=== PATIENT | male | born 1980 | race Hispanic/Latino ===

== ENCOUNTER 2017-04-26 00:32 | Inpatient (IN) | payer OTHER, MEDICARE, MEDICAID ==
[~2017-04-26] VITALS: Ht 175.3 cm; Wt 123.6 kg
[2017-04-26] MEDS ORDERED: ASPIRIN 325 MG TABLET ONE ×2 (00:57→01:04)
[2017-04-26 01:33] LABS: BASOPHILS % (AUTO) 0.7 % (0.0-5.0); EOSINOPHILS % (AUTO) 2.1 % (0.0-8.0); HEMATOCRIT 29.2 % (42-54); LYMPHOCYTES % (AUTO) 22.1 % (21.0-51.0); MEAN CORPUSCULAR HEMOGLOBIN 26.6 pg (27.0-33.0); MEAN CORPUSCULAR HGB CONC 32.4 g/dL (32.0-36.0); MEAN CORPUSCULAR VOLUME 82.1 fL (79-99); MONOCYTES % (AUTO) 5.4 % (3.0-13.0); NEUTROPHILS % (AUTO) 69.7 % (40.0-77.0); PLATELET COUNT (AUTO) 332 K/uL (130-400); RED BLOOD CELL COUNT(AUTO) 3.56 MIL/uL (4.50-6.20); RED CELL DISTRIBUTION WIDTH 14.7 % (11.0-15.5); WHITE BLOOD COUNT (AUTO) 10.7 K/uL (4.8-10.8)
[2017-04-26 01:43] LABS: INR 0.98 (0.85-1.15); PROTHROMBIN TIME 10.3 SEC (9.6-11.6)
[2017-04-26 01:54] LABS: CREATININE 6.3 mg/dL (0.5-1.5); POTASSIUM 5.4 mmol/L (3.5-5.1)
[2017-04-26] MEDS ORDERED: AMPICILLIN SODIUM/SULBACTAM NA 1.5GM VIAL ONE (01:54)
[2017-04-26] MEDS ORDERED: SODIUM CHLORIDE 0.9% 1000ML 1,000 ML IV ONE ×2 (01:59→03:37)
[2017-04-26 02:09] LABS: ALBUMIN 2.9 g/dL (3.5-5.0); BILIRUBIN,TOTAL 0.2 mg/dL (0.2-1.0); CREATINE KINASE MB 11.2 ng/mL (0.5-3.6); TOTAL PROTEIN, SERUM 7.5 g/dL (6.0-8.3)
[2017-04-26] MEDS ORDERED: CALCIUM GLUCONATE 1 GM/10 ML VIAL IV ONE (03:11)
[2017-04-26] MEDS ORDERED: SODIUM POLYSTYRENE SULFONATE 15 GM/60 ML ML ONE (03:11)
[2017-04-26] MEDS ORDERED: DEXTROSE 50%-WATER 50 ML DISP.SYRIN IV ONE (03:11)
[2017-04-26] MEDS ORDERED: INSULIN HUMULIN R 100 UNIT/ML 3ML ONE (03:12)
[2017-04-26] MEDS ORDERED: ALBUTEROL SULFATE 0.083% 2.5 MG/3 ML INH IH ONE (03:16)
[2017-04-26] MEDS ORDERED: IOPAMIDOL-370 75 ML VIAL IV ONE (03:33)
[2017-04-26 04:13] LABS: APPEARANCE,URINE Clear (CLEAR); BILIRUBIN,URINE Negative (NEGATIVE); COLOR,URINE Yellow (YELLOW); GLUCOSE, URINE (UA) >=1000 mg/dL (NEGATIVE); KETONES,URINE Negative (NEGATIVE); LEUKOCYTE ESTERASE ,URINE Negative (NEGATIVE); NITRATE,URINE Negative (NEGATIVE); OCCULT BLOOD,URINE Small (NEGATIVE); PH,URINE 6.5 (5.0-8.0); PROTEIN,URINE >=1000 (NEGATIVE); UROBILINOGEN,URINE 0.2 mg/dL (0.2-1.0)
[2017-04-26] MEDS ORDERED: ENOXAPARIN SODIUM 100 MG/1 ML SQ ONE (04:17)
[2017-04-26] MEDS ORDERED: ENOXAPARIN SODIUM 30 MG/0.3 ML SQ ONE (04:17)
[2017-04-26] MEDS ORDERED: MORPHINE SULFATE 4 MG/1ML SYG ONE (04:18)
[2017-04-26 04:29] LABS: BACTERIA,URINE None Seen /HPF (None Seen); MUCUS,URINE Moderate LPF (None Seen); RBC,URINE 0-1 /HPF (0-1); SQUAMOUS EPITHELIAL CELL,UR None Seen /LPF (0-2); WBC,URINE None Seen /HPF (0-1)
[2017-04-26 07:18] LABS: CREATININE 6.2 mg/dL (0.5-1.5); POTASSIUM 5.1 mmol/L (3.5-5.1)
[2017-04-26] MEDS ORDERED: HYDROCODONE/ACETAMINOPHEN 10/325 MG TAB ONE (11:38)
[2017-04-26 12:42] VITALS: BP 163/90
[2017-04-26] MEDS ORDERED: ONDANSETRON HCL 4 MG/2 ML VIAL IVP PRN (13:00)
[2017-04-26] MEDS ORDERED: ACETAMINOPHEN EXTRA STRENGTH 500 MG TABLET PO PRN (13:00)
[2017-04-26] MEDS ORDERED: HEPARIN SODIUM 5000UNIT/ML 1ML VIAL IJ PRN ×2 (15:30)
[2017-04-26] MEDS ORDERED: ALBUMIN (HUMAN) 25% 100 ML IV PRN (15:30)
[2017-04-26] MEDS ORDERED: SODIUM CHLORIDE 0.9% 1000ML 1,000 ML IV PRN (15:30)
[2017-04-26] MEDS ORDERED: 0.9% SODIUM CHLORIDE 250 ML IV BAG IV PRN (15:30)
[2017-04-26] MEDS ORDERED: TRAZODONE HCL 50 MG TAB PO PRN (15:45)
[2017-04-26] MEDS: INSULIN HUMULIN R 100 UNIT/ML 3ML SQ SCH ×2 (16:30→21:48)
[2017-04-26 16:47] VITALS: BP 181/88
[2017-04-26] MEDS: ENOXAPARIN SODIUM 120 MG/0.8ML SQ SCH (17:32)
[2017-04-26] MEDS: METOCLOPRAMIDE 10 MG TABLET PO SCH ×2 (17:32→21:51)
[2017-04-26] MEDS: HYDRALAZINE HCL 20 MG/ML VIAL IV PRN (17:54)
[2017-04-26 18:00] VITALS: BP 156/89
[2017-04-26] MEDS: HYDROCODONE/ACETAMINOPHEN 5/325 MG TAB PO PRN ×2 (18:00→21:52)
[2017-04-26 19:35] VITALS: BP 181/98
[2017-04-26] MEDS ORDERED: EPOETIN ALFA 3,000 UNIT/ML ML SQ ONE ×2 (20:00→22:00)
[2017-04-26 21:29] LABS: % IRON SATURATION 13.9 % (30-44)
[2017-04-26] MEDS: FENOFIBRATE NANOCRYSTALLIZED 145 MG TAB PO SCH (21:51)
[2017-04-26] MEDS: FAMOTIDINE 20MG TAB 20 MG TAB PO SCH (21:51)
[2017-04-26] MEDS: CARVEDILOL 25 MG TABLET PO SCH (21:51)
[2017-04-26] MEDS: PREGABALIN 75 MG CAPSULE PO SCH (21:51)
[2017-04-26 23:25] VITALS: BP 148/93
[2017-04-27 03:35] VITALS: BP 153/91
[2017-04-27 06:13] LABS: MEAN CORPUSCULAR HGB CONC 34.2 g/dL (32.0-36.0); PLATELET COUNT (AUTO) 349 K/uL (130-400); RED BLOOD CELL COUNT(AUTO) 3.41 MIL/uL (4.50-6.20); RED CELL DISTRIBUTION WIDTH 14.6 % (11.0-15.5)
[2017-04-27] MEDS: METOCLOPRAMIDE 10 MG TABLET PO SCH ×4 (06:19→22:37)
[2017-04-27] MEDS: INSULIN HUMULIN R 100 UNIT/ML 3ML SQ SCH ×4 (06:22→22:30)
[2017-04-27 06:50] LABS: BASOPHILS % (MANUAL) 1 % (0-2); EOSINOPHILS % (MANUAL) 3 % (1-6); LYMPHOCYTES % (MANUAL) 21 % (22-44); MAN.DIFF COMMENT-IMPRESSION MANUAL DIFFERENTIAL; MONOCYTES % (MANUAL) 11 % (2-9); PLATELET MORPHOLOGY COMMENT ADEQUATE; SEGMENTED NEUTROPHILS % 64 % (40-70)
[2017-04-27 07:25] LABS: CREATININE 5.1 mg/dL (0.5-1.5); POTASSIUM 4.8 mmol/L (3.5-5.1)
[2017-04-27 07:58] VITALS: BP 176/89
[2017-04-27] MEDS: FOLIC ACID/VITAMIN B COMP W-C 1 MG CAPSULE PO SCH (09:04)
[2017-04-27] MEDS: LISINOPRIL 20 MG TABLET PO SCH (09:05)
[2017-04-27] MEDS: CITALOPRAM 20 MG TABLET PO SCH (09:05)
[2017-04-27] MEDS: CARVEDILOL 25 MG TABLET PO SCH ×2 (09:05→22:38)
[2017-04-27] MEDS: CLONIDINE HCL 0.1 MG TABLET PO SCH (09:05)
[2017-04-27] MEDS: AMLODIPINE BESYLATE 5 MG TAB PO SCH (09:06)
[2017-04-27] MEDS: ENOXAPARIN SODIUM 120 MG/0.8ML SQ SCH (09:10)
[2017-04-27 11:07] VITALS: BP 155/77
[2017-04-27] MEDS: PREGABALIN 75 MG CAPSULE PO SCH ×2 (13:06→22:36)
[2017-04-27 16:00] VITALS: BP 150/76
[2017-04-27 19:25] VITALS: BP 132/59
[2017-04-27] MEDS: RIVAROXABAN 15 MG TABLET PO SCH (22:36)
[2017-04-27] MEDS: FAMOTIDINE 20MG TAB 20 MG TAB PO SCH (22:37)
[2017-04-27] MEDS: FENOFIBRATE NANOCRYSTALLIZED 145 MG TAB PO SCH (22:37)
[2017-04-27 23:45] VITALS: BP 174/91
[2017-04-28] VITALS (7 sets, daily range): BP systolic 126–180; BP diastolic 64–89
[2017-04-28] MEDS: HYDRALAZINE HCL 20 MG/ML VIAL IV PRN (01:04)
[2017-04-28] MEDS: HYDROCODONE/ACETAMINOPHEN 5/325 MG TAB PO PRN ×2 (01:39→23:14)
[2017-04-28] MEDS ORDERED: ALBUMIN (HUMAN) 25% 100 ML IV PRN (06:15)
[2017-04-28] MEDS ORDERED: SODIUM CHLORIDE 0.9% 1000ML 1,000 ML IV PRN (06:15)
[2017-04-28] MEDS ORDERED: HEPARIN SODIUM 5000UNIT/ML 1ML VIAL IJ PRN ×2 (06:15)
[2017-04-28] MEDS ORDERED: 0.9% SODIUM CHLORIDE 250 ML IV BAG IV PRN (06:15)
[2017-04-28] MEDS: INSULIN HUMULIN R 100 UNIT/ML 3ML SQ SCH ×4 (07:30→22:47)
[2017-04-28] MEDS: METOCLOPRAMIDE 10 MG TABLET PO SCH ×4 (07:30→23:13)
[2017-04-28] MEDS: CARVEDILOL 25 MG TABLET PO SCH ×2 (10:25→23:15)
[2017-04-28] MEDS: FOLIC ACID/VITAMIN B COMP W-C 1 MG CAPSULE PO SCH (10:25)
[2017-04-28] MEDS: CITALOPRAM 20 MG TABLET PO SCH (10:26)
[2017-04-28] MEDS: AMLODIPINE BESYLATE 5 MG TAB PO SCH (10:26)
[2017-04-28] MEDS: CLONIDINE HCL 0.1 MG TABLET PO SCH (10:26)
[2017-04-28] MEDS: RIVAROXABAN 15 MG TABLET PO SCH (10:27)
[2017-04-28] MEDS: LISINOPRIL 20 MG TABLET PO SCH (10:27)
[2017-04-28] MEDS: ENOXAPARIN SODIUM 120 MG/0.8ML SQ SCH (10:34)
[2017-04-28] MEDS: PREGABALIN 75 MG CAPSULE PO SCH ×2 (10:34→23:14)
[2017-04-28] MEDS ORDERED: EPOETIN ALFA 3,000 UNIT/ML ML SQ NR (15:00)
[2017-04-28] MEDS: FENOFIBRATE NANOCRYSTALLIZED 145 MG TAB PO SCH (23:14)
[2017-04-28] MEDS: FAMOTIDINE 20MG TAB 20 MG TAB PO SCH (23:14)
[2017-04-29 00:32] VITALS: BP 162/79
[2017-04-29 04:49] VITALS: BP 138/77
[2017-04-29] MEDS: METOCLOPRAMIDE 10 MG TABLET PO SCH ×3 (06:50→16:58)
[2017-04-29] MEDS: INSULIN HUMULIN R 100 UNIT/ML 3ML SQ SCH ×3 (06:56→17:02)
[2017-04-29 07:00] VITALS: BP 169/87
[2017-04-29] MEDS ORDERED: RIVAROXABAN 15 MG TABLET PO SCH (09:00)
[2017-04-29] MEDS: CLONIDINE HCL 0.1 MG TABLET PO SCH (10:40)
[2017-04-29] MEDS: AMLODIPINE BESYLATE 5 MG TAB PO SCH (10:40)
[2017-04-29] MEDS: LISINOPRIL 20 MG TABLET PO SCH (10:40)
[2017-04-29] MEDS: CITALOPRAM 20 MG TABLET PO SCH (10:41)
[2017-04-29] MEDS: FOLIC ACID/VITAMIN B COMP W-C 1 MG CAPSULE PO SCH (10:41)
[2017-04-29] MEDS: PREGABALIN 75 MG CAPSULE PO SCH (10:41)
[2017-04-29] MEDS: CARVEDILOL 25 MG TABLET PO SCH (10:41)
[2017-04-29] MEDS: ENOXAPARIN SODIUM 120 MG/0.8ML SQ SCH (10:42)
[2017-04-29 11:00] VITALS: BP 157/76
[2017-04-29] MEDS ORDERED: FOLI1TAB85 PO (16:23)
[2017-04-29] MEDS ORDERED: ESCI20TA36 PO (16:23)
[2017-04-29] MEDS ORDERED: CLON0.1T PO (16:23)
[2017-04-29] MEDS ORDERED: PREG75 PO (16:23)
[2017-04-29] MEDS ORDERED: CARV25TA PO (16:23)
[2017-04-29] MEDS ORDERED: LISI-613 PO (16:23)
[2017-04-29] MEDS ORDERED: METO-296 PO (16:23)
[2017-04-29] MEDS ORDERED: AMLO10TA2 PO (16:23)
[2017-04-29] MEDS ORDERED: HYDR-309 PO (16:23)
[2017-04-29] MEDS ORDERED: FENO145T37 PO (16:23)
[2017-04-29] MEDS ORDERED: TRAZ-144 PO (16:23)
== END 2017-04-29 17:25 | disposition home or self-care (01) | DRG 175 ==
LOC: EDH 00:32 → EDHIP 03:27 → 3DH 12:28
PROVIDERS: ADMIT Family Medicine; ATTEND Family Medicine
PROC: 5A1D70Z Performance of Urinary Filtration, Intermittent, Less than 6 Hours Per Day (ICD-10-PCS; principal; 2017-04-26)
PROC: 5A1D70Z Performance of Urinary Filtration, Intermittent, Less than 6 Hours Per Day (ICD-10-PCS; 2017-04-28)
DX: I26.99 Other pulmonary embolism without acute cor pulmonale (principal); N18.6 End stage renal disease; E11.21 Type 2 diabetes mellitus with diabetic nephropathy; I12.0 Hypertensive chronic kidney disease with stage 5 chronic kidney disease or end stage renal disease; Z68.41 Body mass index [BMI] 40.0-44.9, adult; I82.612 Acute embolism and thrombosis of superficial veins of left upper extremity; E11.22 Type 2 diabetes mellitus with diabetic chronic kidney disease; E66.01 Morbid (severe) obesity due to excess calories; G47.33 Obstructive sleep apnea (adult) (pediatric); E11.65 Type 2 diabetes mellitus with hyperglycemia; D64.9 Anemia, unspecified; Z99.2 Dependence on renal dialysis; Z85.6 Personal history of leukemia; Z83.3 Family history of diabetes mellitus; Z82.49 Family history of ischemic heart disease and other diseases of the circulatory system
CPT/HCPCS: 36415; 71045; 71275; 80048; 80053; 81001; 82550; 82553; 82948; 83540; 83550; 83874; 84484; 85025; 85610; 85730; 90935; 93005; 93970; 93971; 94644; 99291; J0295; J0360; J0610; J1644; J1650; J1815; J2270; J7030; J7070; Q9967